=== PATIENT | female | born 1995 | race Hispanic/Latino ===

== ENCOUNTER 2017-06-07 01:13 | Observation (INO) | payer MEDICAID ==
[~2017-06-07] VITALS: Ht 157.5 cm; Wt 64.9 kg
[~2017-06-07 01:13] MED LIST: PREN-196 PO
[2017-06-07 01:37] LABS: APPEARANCE,URINE Clear (CLEAR); BILIRUBIN,URINE Negative (NEGATIVE); COLOR,URINE Yellow (YELLOW); GLUCOSE, URINE (UA) Negative (NEGATIVE); KETONES,URINE Negative (NEGATIVE); LEUKOCYTE ESTERASE ,URINE Negative (NEGATIVE); NITRATE,URINE Negative (NEGATIVE); OCCULT BLOOD,URINE Negative (NEGATIVE); PROTEIN,URINE Negative (NEGATIVE)
[2017-06-07] MEDS ORDERED: LACTATED RINGERS 1000ML IV STA (01:49)
[2017-06-07 02:00] VITALS: BP 112/68
[2017-06-07] MEDS ORDERED: LACTATED RINGERS 1000ML 1,000 ML IV SCH (02:00)
[2017-06-07] MEDS ORDERED: PREN1TAB89 PO (02:11)
[2017-06-07] MEDS ORDERED: MAGNESIUM 4GM PREMIX 100ML 100 ML IV SCH (02:15)
[2017-06-07] MEDS ORDERED: CALCIUM GLUCONATE 1 GM/10 ML VIAL IV PRN (02:15)
[2017-06-07] MEDS ORDERED: MAGNESIUM 4GM PREMIX 100ML 100 ML IV ONE (02:19)
[2017-06-07] MEDS ORDERED: DEXAMETHASONE SOD PHOSPHATE 4 MG/ML 1ML VIAL ONE (02:28)
[2017-06-07] MEDS ORDERED: AMPICILLIN 2GM+NS 100ML 100 ML IV ONE (02:28)
[2017-06-07] MEDS ORDERED: MAGNESIUM SULFATE 1,000 ML IV ONE (02:32)
[2017-06-07] MEDS ORDERED: MAGNESIUM SULFATE 1,000 ML IV PRN (02:45)
[2017-06-07 06:53] LABS: MEAN CORPUSCULAR HEMOGLOBIN 26.3 pg (27.0-33.0); MEAN CORPUSCULAR HGB CONC 33.4 g/dL (32.0-36.0); MEAN CORPUSCULAR VOLUME 78.7 fL (79-99); PLATELET COUNT (AUTO) 311 K/uL (130-400); RED BLOOD CELL COUNT(AUTO) 3.94 MIL/uL (4.00-5.50); RED CELL DISTRIBUTION WIDTH 14.4 % (11.0-15.5); WHITE BLOOD COUNT (AUTO) 12.5 K/uL (4.8-10.8)
[2017-06-07 08:51] LABS: RAPID PLASMA REAGIN NONREACTIVE (NONREACTIVE)
[2017-06-07] MEDS: AMPICILLIN 2GM+NS 100ML 100 ML IV SCH ×3 (09:00→20:22)
[2017-06-07] MEDS: DEXAMETHASONE SOD PHOSPHATE 4 MG/ML 1ML VIAL IM SCH ×3 (09:06→20:23)
[2017-06-08 08:18] LABS: HEPATITIS Bs ANTIGEN SCREEN P Negative (Negative)
== END 2017-06-07 21:20 | disposition home or self-care (01) ==
LOC: EDH 01:13 → OBSVTOIN 01:14 → LDH 01:14 → INTOOBSV 01:14
PROVIDERS: ADMIT Obstetrics & Gynecology; ATTEND Obstetrics & Gynecology
DX: O62.9 Abnormality of forces of labor, unspecified (principal); Z3A.34 34 weeks gestation of pregnancy
CPT/HCPCS: 36415; 81003; 83735; 85027; 86592; 86701; 86850; 86900; 86901; 87340; 87390; 96361; 96365; 96372; 96375; 96376; 99285; G0378 ×20; J0290 ×4; J1100 ×4; J3475 ×2; J7120

== ENCOUNTER 2017-07-02 19:32 | Inpatient (IN) | payer MEDICAID ==
[~2017-07-02] VITALS: Ht 157.5 cm; Wt 66.2 kg
[~2017-07-02 19:32] MED LIST changes: +PREN1TAB89 PO
[2017-07-02] MEDS ORDERED: LACTATED RINGERS 1000ML 1,000 ML IV PRN (19:36)
[2017-07-02 20:11] LABS: APPEARANCE,URINE Clear (CLEAR); BILIRUBIN,URINE Negative (NEGATIVE); COLOR,URINE Yellow (YELLOW); GLUCOSE, URINE (UA) Negative (NEGATIVE); KETONES,URINE Negative (NEGATIVE); LEUKOCYTE ESTERASE ,URINE Small (NEGATIVE); NITRATE,URINE Negative (NEGATIVE); OCCULT BLOOD,URINE Negative (NEGATIVE); PROTEIN,URINE Negative (NEGATIVE)
[2017-07-02 20:23] LABS: HEMATOCRIT 31.9 % (36-48); MEAN CORPUSCULAR HEMOGLOBIN 25.2 pg (27.0-33.0); MEAN CORPUSCULAR HGB CONC 33.2 g/dL (32.0-36.0); MEAN CORPUSCULAR VOLUME 75.9 fL (80-100); PLATELET COUNT (AUTO) 383 K/uL (130-400); RED BLOOD CELL COUNT(AUTO) 4.21 MIL/uL (4.00-5.50); RED CELL DISTRIBUTION WIDTH 15.4 % (11.0-15.5); WHITE BLOOD COUNT (AUTO) 9.7 K/uL (4.8-10.8)
[2017-07-02 20:28] VITALS: BP 106/51
[2017-07-02 20:32] LABS: BACTERIA,URINE Rare /HPF (None Seen); RBC,URINE 0-1 /HPF (0-1)
[2017-07-02 20:33] LABS: SQUAMOUS EPITHELIAL CELL,UR Few /LPF (0-2)
[2017-07-02] MEDS ORDERED: FLU VACC QS2017-18 36MOS UP/PF 60 MCG/0.5 ML ML IM SCH (22:00)
[2017-07-03] VITALS (8 sets, daily range): BP systolic 102–123; BP diastolic 55–71
[2017-07-03] MEDS ORDERED: LACTATED RINGERS 1000ML 1,000 ML IV ONE ×2 (03:41→15:53)
[2017-07-03] MEDS ORDERED: OXYTOCIN 10 USP UNITS/ML ONE ×2 (03:42→15:54)
[2017-07-03] MEDS ORDERED: OXYTOCIN 10 USP UNITS/ML 20 UNIT in LACTATED RINGERS 1000ML 1,000 ML IV SCH (04:00)
[2017-07-03] MEDS ORDERED: EPHEDRINE SULFATE 50 MG/ML AMPULE IVP PRN (08:15)
[2017-07-03] MEDS ORDERED: NALOXONE HCL 0.4 MG/1 ML ML IV PRN (08:15)
[2017-07-03] MEDS ORDERED: LACTATED RINGERS 500 ML 500 ML IV PRN (08:15)
[2017-07-03 09:13] LABS: RAPID PLASMA REAGIN NONREACTIVE (NONREACTIVE)
[2017-07-03] MEDS ORDERED: LIDOCAINE HCL 1% 20 ML VIAL ONE (10:27)
[2017-07-03] MEDS ORDERED: BENZOCAINE/LANOLIN/ALOE VERA 60 ML AEROSOL TP PRN (13:45)
[2017-07-03] MEDS ORDERED: OXYTOCIN-LR 20 UNITS/1000 ML 1,000 ML IV SCH (13:45)
[2017-07-03] MEDS ORDERED: DIPH,PERTUSS(ACELL),TET VAC/PF 0.5 ML VIAL IM PRN (13:45)
[2017-07-03] MEDS ORDERED: LANOLIN 30GM OINTMENT TP PRN (13:45)
[2017-07-03] MEDS ORDERED: WITCH HAZEL 1 PAD TP PRN (13:45)
[2017-07-03] MEDS: DOCUSATE SODIUM 100 MG CAP PO SCH (21:58)
[2017-07-03] MEDS: IBUPROFEN 600 MG TABLET PO PRN (21:59)
[2017-07-04 03:41] VITALS: BP 114/68
[2017-07-04 06:57] LABS: HEMATOCRIT 28.7 % (36-48); MEAN CORPUSCULAR HEMOGLOBIN 24.8 pg (27.0-33.0); MEAN CORPUSCULAR HGB CONC 32.5 g/dL (32.0-36.0); MEAN CORPUSCULAR VOLUME 76.2 fL (80-100); PLATELET COUNT (AUTO) 292 K/uL (130-400); RED BLOOD CELL COUNT(AUTO) 3.77 MIL/uL (4.00-5.50); RED CELL DISTRIBUTION WIDTH 16.2 % (11.0-15.5); WHITE BLOOD COUNT (AUTO) 12.5 K/uL (4.8-10.8)
[2017-07-04 07:38] VITALS: BP 100/61
[2017-07-04] MEDS: DOCUSATE SODIUM 100 MG CAP PO SCH (08:34)
[2017-07-04] MEDS: IBUPROFEN 600 MG TABLET PO PRN (08:36)
[2017-07-04 10:08] LABS: HEPATITIS Bs ANTIGEN SCREEN P Negative (Negative)
[2017-07-04 11:37] VITALS: BP 105/62
[2017-07-04] MEDS ORDERED: MO6B PO (12:47)
== END 2017-07-04 14:10 | disposition home or self-care (01) | DRG 560 ==
LOC: LDH 19:32 → WSH 07-03 16:05
PROVIDERS: ADMIT Obstetrics & Gynecology; ATTEND Obstetrics & Gynecology
PROC: 10E0XZZ Delivery of Products of Conception, External Approach (ICD-10-PCS; principal; 2017-07-03)
PROC: 3E0R3BZ Introduction of Anesthetic Agent into Spinal Canal, Percutaneous Approach (ICD-10-PCS; 2017-07-03)
PROC: 00HU33Z Insertion of Infusion Device into Spinal Canal, Percutaneous Approach (ICD-10-PCS; 2017-07-03)
PROC: 10907ZC Drainage of Amniotic Fluid, Therapeutic from Products of Conception, Via Natural or Artificial Opening (ICD-10-PCS; 2017-07-03)
PROC: 3E0234Z Introduction of Serum, Toxoid and Vaccine into Muscle, Percutaneous Approach (ICD-10-PCS; 2017-07-03)
PROC: 3E0234Z Introduction of Serum, Toxoid and Vaccine into Muscle, Percutaneous Approach (ICD-10-PCS; 2017-07-03)
DX: O69.81X0 Labor and delivery complicated by cord around neck, without compression, not applicable or unspecified (principal); Z23 Encounter for immunization; Z37.0 Single live birth; Z3A.40 40 weeks gestation of pregnancy
CPT/HCPCS: 36415; 81001; 85027; 86592; 86701; 86850; 86900; 86901; 87340; 87390; 90715; A4314; G0008; J2590; J7120; Q2038